=== PATIENT | female | born 1945 | race Caucasian/White ===

== ENCOUNTER 2020-08-09 10:10 | Emergency (ER) | payer MEDICARE, OTHER, SELFPAY ==
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
[2020-08-09 10:12] VITALS: BP 157/72; PULSE 57; RESP 16; O2SAT 100
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
[2020-08-09] MEDS: TETANUS,DIPHTHERIA,AC PERTUSSIS ADULT (0.5 ML) BOOSTRIX IM (12:26)
[2020-08-09 13:27] VITALS: BP 117/80; PULSE 57; RESP 16
== END 2020-08-09 13:27 | disposition home or self-care (01) ==
PROVIDERS: Emergency Provider General Practice; PCP Family Medicine
DX: S40.011A Contusion of right shoulder, initial encounter (principal); S61.303A Unspecified open wound of left middle finger with damage to nail, initial encounter; S00.83XA Contusion of other part of head, initial encounter; Z23 Encounter for immunization; I10 Essential (primary) hypertension; M18.9 Osteoarthritis of first carpometacarpal joint, unspecified; W20.8XXA Other cause of strike by thrown, projected or falling object, initial encounter
CPT/HCPCS: 70450; 70486; 72125; 73030; 73130; 90471; 90715; 99284

== ENCOUNTER 2022-04-02 17:56 | Emergency (ER) | payer OTHER, MEDICARE, SELFPAY ==
[2022-04-02] VITALS (7 sets, daily range): BP systolic 118–151; BP diastolic 79–97; PULSE 71; RESP 18–20; TEMP 37.1; O2SAT 97–98
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
[2022-04-02] MEDS: ACETAMINOPHEN 500 MG TABLET 1000 MG PO (19:25)
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
[2022-04-02] MEDS: CYCLOBENZAPRINE HCL 5 MG TABLET PO (20:25)
== END 2022-04-02 20:40 | disposition home or self-care (01) ==
PROVIDERS: Emergency Provider General Practice; PCP Family Medicine
DX: S43.402A Unspecified sprain of left shoulder joint, initial encounter (principal); S16.1XXA Strain of muscle, fascia and tendon at neck level, initial encounter; S70.02XA Contusion of left hip, initial encounter; M19.012 Primary osteoarthritis, left shoulder; M16.0 Bilateral primary osteoarthritis of hip; M47.816 Spondylosis without myelopathy or radiculopathy, lumbar region; M47.812 Spondylosis without myelopathy or radiculopathy, cervical region; V43.52XA Car driver injured in collision with other type car in traffic accident, initial encounter
CPT/HCPCS: 72100; 72125; 73030; 73502; 99284; A9270

== ENCOUNTER 2022-07-14 16:25 | Emergency (ER) | payer MEDICARE, OTHER, SELFPAY ==
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
--- NOTE | 2022-07-14 16:45 | PC.NURSE ---
Patient off unit to radiology.
--- NOTE | 2022-07-14 17:24 | ED.LOWEXIN ---
HPI - Extremity Injury (Lower) General Chief Complaint: Extremity Injury, Lower Stated Complaint: right foot pain Time Seen by Provider: 07/14/22 16:54 History of Present Illness HPI Narrative: 77-year-old female presents to the emergency room for evaluation of pain to her right foot. Patient states 1 week ago she stubbed her toe on a concrete block. Reports was experiencing pain for 2 days and then the pain improved, however over the weekend the pain returned and was worse. Patient has been taking Tylenol and ibuprofen sporadically for the discomfort. No other injuries. Related Data Allergies Allergy/AdvReac Type Severity Reaction Status Date / Time iodine Allergy Unknown Unknown Verified 08/09/20 10:17 Review of Systems Review of Systems: CONSTITUTIONAL: Denies fever, chills, or sweats. EYES: Denies visual changes, redness, or discharge. ENT: Denies rhinorrhea, congestion, sore throat, or otalgia. CARDIOVASCULAR: Denies chest pain, palpitations, or edema. RESPIRATORY: Denies cough or dyspnea. GASTROINTESTINAL: Denies abdominal pain, nausea, vomiting, or diarrhea. GENITOURINARY: Denies dysuria or hematuria. SKIN: Denies rash or itching. MUSCULOSKELETAL: Reports right second toe pain NEUROLOGIC: Denies headache, numbness, dizziness, or weakness. PSYCHIATRIC: Denies anxiety or depression. PMFSH Past Medical History Medical History History of hypertension Surgical History Surgical History Hx of cholecystectomy Family History Family History Mother Hypertension Family history of osteoarthritis Family history of elevated blood lipids Father Hypertension Patient's father is Grandparent Hypertension Cerebrovascular accident Social History Social History Smoking status: Never smoker Alcohol intake: current Exam Narrative: GENERAL: Well-appearing, well-nourished, no physical limitations, and in no acute distress. HEAD: Normocephalic, atraumatic. EYES: Conjunctivae normal, PERRLA and EOMI. CHEST: Clear to auscultation. No respiratory distress. No wheezes rales or rhonchi. HEART: Regular rate and rhythm. No murmur heard. Normal peripheral pulses. EXTREMITIES: Rt. foot, 2nd toe: +TTP to tip, no ecchymosis or swelling. Full range of motion of DIP PIP and MTP joints. No obvious bony abnormality. Neurovascular is intact distally SKIN: Warm, dry, no rash. No noted wounds NEURO: No focal deficits. Alert and oriented x3. MAEW. CN's II-XI intact bilaterally, antalgic gait PSYCH: Cooperative. Normal mood and affect. MDM - Extremity Injury (Lower) Imaging Data Radiologist's impression: Impressions Foot X-Ray 07/14/22 16:55 IMPRESSION: No recent fracture or dislocation is detected. Discharge Plan Discharge Clinical Impression: Contusion of toe of right foot Patient Disposition: Home, Self-Care Condition: Stable Additional Instructions: Wear Ortho shoe for comfort for the next 2 weeks. If you continue to experience pain in 2 weeks, recommend following up with orthopedics. May take Tylenol and ibuprofen as needed for discomfort. Prescriptions: No Action cyclobenzaprine 5 mg tablet 5 mg PO HS PRN (Reason: muscle spasm) Qty: 10 0RF Follow-up/Referrals: Demian,Ivanna Boudreaux MD [Primary Care Provider] - Clarence Ferris MD [Physician] - Time of Disposition: 17:27
== END 2022-07-14 17:55 | disposition home or self-care (01) ==
LOC: ANHED 17:37
PROVIDERS: Emergency Provider Nurse Practitioner Family; PCP Family Medicine
DX: S90.121A Contusion of right lesser toe(s) without damage to nail, initial encounter (principal); W22.8XXA Striking against or struck by other objects, initial encounter; I10 Essential (primary) hypertension
CPT/HCPCS: 73630; 99283

== ENCOUNTER 2022-07-22 07:43 | Outpatient (CLI) | payer MEDICARE, OTHER, SELFPAY | END 2022-07-22 07:44 | disposition home or self-care (01) | LOC: ANHAUDIO 07:45 | PROVIDERS: PCP Family Medicine; Visit Provider Family Medicine | DX: H91.93 Unspecified hearing loss, bilateral (principal) | CPT/HCPCS: 92557; 92567 ==

== ENCOUNTER 2024-07-17 08:46 | Emergency (ER) | payer MEDICARE, SELFPAY ==
--- NOTE | ~2024-07-17 | XR_ITS ---
EXAMINATION: XR shoulder LT min 2V DATE: 07/17/2024 09:27 INDICATION: Left shoulder pain. TECHNIQUE: 5 views of left shoulder were obtained. COMPARISON: Left shoulder radiograph 04/02/2022 FINDINGS: Alignment is normal. No fracture. There is mild osteoarthritis of glenohumeral joint and mo derate osteoarthritis of acromioclavicular joint. IMPRESSION: 1. Polyarticular osteoarthritis. Reviewed, dictated and finalized at location A. PROFESSIONAL
[2024-07-17 09:30] VITALS: BP 170/74; PULSE 68; RESP 20; TEMP 36.6; O2SAT 99
--- NOTE | 2024-07-17 10:21 | ED_ITS ---
HPI - Extremity Problem General Chief complaint: Extremity Problem,Nontraumatic Stated complaint: shoulder injury Time Seen by Provider: 07/17/24 10:00 Source: patient Mode of arrival: ambulatory Limitations: no limitations History of Present Illness HPI Narrative: Mjqkx-gytd-uvgzzrys female presents with left shoulder pain. She was using a long handled paint roller to pain a ceiling yesterday. Approximately min she started developing pain that seems to worsened since she has decreased range of motion secondary to pain. Pains throughout her left shoulder and to her left elbow. She had some some neck stiffness but this got better with the use of a heating pad. She believes she might have had shoulder surgery or procedure shoulder for a possible bone spur but she is unsure which side or what the issue was. This was 18 years ago and she does not continue follow with her orthopedic surgeon she believes they moved to [place]. She has been taking ibuprofen at home, four 200mg tablets (i.e. 800mg) a few times. Her previous PCP was Dr Camacho who is . She subsequently established with an [facility] CON[facility] in Dr Marty Morales's practice who she sees for her arthritis and chronic numbness in her feet. She states she has a history left-sided weakness as well problems being worse when they occur on that side. She denies any diagnosis a TIA or CVA but notes that she did previously sever a tendon in left foot. Related Data Allergies Allergy/AdvReac Type Severity Reaction Status Date / Time shrimp Allergy Hives Verified 07/19/24 11:22 [facility] Past Medical History Medical History (Updated 07/19/24 @ 11:24 by Roxane Peña MD) Arthritis History of hypertension Injury of tendon of foot Left Numbness in feet Right hand dominant Surgical History Surgical History Hx of cholecystectomy Hx of shoulder surgery bone spur Family History Family History Mother Hypertension Family history of osteoarthritis Family history of elevated blood lipids Father Hypertension Patient's father is Grandparent Hypertension Cerebrovascular accident Social History Social History Smoking status: Never smoker Alcohol intake: current Exam Narrative: GENERAL: Well-appearing, well-nourished, and in no acute distress. HEAD: Normocephalic, atraumatic. EYES: Non injected, non icteric ENT: Nares clear, no rhinorrhea or epistaxis. NECK: Supple. CHEST: Speaking in full sentences. No respiratory distress. HEART: Regular rate and rhythm. . ABDOMEN: Soft, nondistended. EXTREMITIES: Normal range of motion. No upper extremity edema. Patient experiences some pain on the left with Neer's assessment. she is able to demonstrate Hinckley lift-off test bilaterally. SKIN: Warm, dry, no rash. NEURO: No focal deficits. Alert and oriented x3. Sensation intact throughout arm. No overlying erythema, ecchymosis, abrasion, laceration PSYCH: Normal mood and affect. Course Vital Signs Vital signs: Vital Signs Temperature 97.9 F 07/17/24 09:30 Pulse Rate 68 07/17/24 09:30 Respiratory Rate 20 07/17/24 09:30 Blood Pressure 170/74 H 07/17/24 09:30 Pulse Oximetry 99 07/17/24 09:30 Temperature 97.9 F 07/17/24 09:30 Pulse Rate 58 L 07/17/24 11:41 Respiratory Rate 16 07/17/24 11:41 Blood Pressure 233/71 H 07/17/24 11:41 Pulse Oximetry 97 07/17/24 11:41 MDM - Extremity (Nontraumatic) MDM Narrative Medical decision making narrative: [id number] female presents with left shoulder pain bloated last night after painting her ceiling earlier in the day. in the emergency department she is afebrile with vital signs notable for hypertension. Patient given analgesic medication. She has a reassuring physical exam and is otherwise neurovascularly intact. She is provided prescriptions for analgesic medication combination as well as instructions on shoulder exercises she can perform at home. Advised follow-up with her primary care provider if pain persists that she might require further investigation/intervention. Stable for discharge. Patient remained hypertensive at the time of discharge. She did tell the nurse that she came to the emergency department this morning before being able to take her medications but she otherwise has them at home and does not need of any refills. She is otherwise asymptomatic and denies any chest pain or shortness of breath. Differential Diagnosis Differential diagnosis: Likely other (Overuse injury, tendinopathy fracture, dislocation, rotator pathology) Imaging Data Radiologist's impression: IMPRESSION: 1. Polyarticular osteoarthritis. Discharge Plan Discharge Clinical Impression: Polyarticular osteoarthritis, Acute pain of left shoulder Patient Disposition: Home, Self-Care Condition: Stable Instructions: Antibiotic Form, Osteoarthritis (ED), Shoulder Pain (ED) Additional Instructions: It is safe to take acetaminophen/Tylenol with NSAIDs such as ibuprofen as prescribed. When taken together they can sometimes have an even greater affect than when taken independently/alone. Attempt the following Shoulder Exercises +Pendulum swings Patient bends slightly at waist with arm hanging freely in front of body Arms should be swung in gentle arcs of motion both clockwise and counter- clockwise Swing to level of pain tolerance x 5-10min 3-4 times per day +Walk fingers up wall Stand sideways an arm's length from wall and walk fingers up wall to level of pain tolerance three to four times per day Follow-up with your primary care provider, the ADMISSIONS CONSULTANT at Dr Morales's office as, if pain is not improving may require alternative pain medication, physical therapy, additional imaging, etc. return to the emergency department with any new or worsening symptoms. Prescriptions: New ibuprofen 600 mg tablet 600 mg PO TID PRN (Reason: pain) Qty: 30 0RF acetaminophen 500 mg capsule 1,000 mg PO Q6H PRN (Reason: pain) Qty: 20 0RF diclofenac sodium [Aleve (diclofenac)] 1 % gel 2 g topical QID Qty: 100 0RF Rx Instructions: apply to affected area No Action cyclobenzaprine 5 mg tablet 5 mg PO HS PRN (Reason: muscle spasm) Qty: 10 0RF Follow-up/Referrals: Carmen,Marty Gonzalez MD [Primary Care Provider] - Time of Disposition: 11:09
[2024-07-17] MEDS: HYDROcodone/acetaminophen (*CRX) 5-325 MG TABLET 1 TAB PO (10:42)
[2024-07-17] MEDS: ACETAMINOPHEN 325 MG TABLET 650 MG PO (10:42)
--- NOTE | 2024-07-17 11:38 | PC.NURSE ---
BP at time of d/c 233/71. Pt. denies SOB or chest pain. Pt. states I just forget to take my BP medication this morning. Pt. does not need a refill and has her medications at home. Md Peña notified. Per , pt. ok to d/c home. Pt also ok with plan and she will take her medication immediately when she gets home.
[2024-07-17 11:41] VITALS: BP 233/71; PULSE 58; RESP 16; O2SAT 97
== END 2024-07-17 11:43 | disposition home or self-care (01) ==
PROVIDERS: Emergency Provider Student in an Organized Health Care Education/Training Program; PCP Family Medicine
DX: M19.012 Primary osteoarthritis, left shoulder (principal); I10 Essential (primary) hypertension; Z90.49 Acquired absence of other specified parts of digestive tract
CPT/HCPCS: 73030; 99283; A9270

== ENCOUNTER 2024-11-07 09:12 | Outpatient (CLI) | payer MEDICARE, SELFPAY ==
--- NOTE | 2024-11-07 09:53 | ECG_ITS ---
Test Date: 2024-11-07 10:08:17 Measurements Intervals [place] Rate: 52 P: 5 VA: 163 QRS: 1 QRSD: 79 T: 30 QT: 427 QTc: 399 Interpretive Statements SINUS BRADYCARDIA No previous ECG available for comparison Electronically Signed On 11-08-2024 15:29:48 CDT by Matty Hernandez M.D.
--- OUTSIDE RECORDS SUMMARY | 2024-11-07 10:07 | XMS_ITS | Data Portability ---
Author Organization [facility] [employer], Main Office Address [address] [place] [address] Assessment No assessment recorded. Plan of Treatment Reminders Order Date Submit Date Provider Last Modified By Organization Details Last Modified Time Details Appointments None recorded. Lab noninvasive colorectal cancer DNA + occult blood screening, QL, stool 2023 024 [email or web address] [facility] (Cologuard Orders Only), [address] [facility], [address], [place], [address], 4 08:25:28 TSH + free T4, serum 2023 024 [facility], [address] [facility] [address], [place], [address], 4 13:22:03 Referral cardiologis t referral - Please continue to eval and treat prn . Grace call patient to schedule an appointment with Dr. Noé Thomas. Thank you 2023 024 [facility], [address] [facility], [address], [place], [address], 4 08:23:04 physical therapist referral - pain left hip laterally down to knee *Please call pt to schedule* 2023 024 [facility], [address], [place], [address], 4 09:50:19 Procedures None recorded. Surgeries None recorded. Imaging MAMMO, screening, digital, bilateral 2023 024 [facility], [address] , [place], [address], 4 11:12:54 US, duplex, venous, lower extremity, complete - *Please call pt to schedule* 2023 024 [facility], [address] , [place], [address], 4 10:55:15 Medication Orders Paxlovid 300 mg (150 mg x 2)-100 mg tablets in a dose pack 2023 024 [facility]/Pharmacy #[id number], [address], [place], [address], 4 11:25:52 dexamethaso ne 6 mg tablet 2023 024 [email or web address] [address] [facility]/Pharmacy #[id number], [address], [place], [address], 4 11:33:51 amoxicillin 875 mg-potassiu m clavulanate 125 mg tablet 2023 024 [email or web address] [facility]/Pharmacy #[id number], [address], [place], [address], 4 12:25:39 Patient TargetsNo targets recorded. Patient Instructions Encounter Date Encounter Id Patient Instructions Last Modified By Organization Details Last Modified Time 03/31/2024 [id number] advance directiv es: care instructions [email or web address] Not available 03/31/2024 11:25:49 advance care planning: care instructions [email or web address] Not available 03/31/2024 11:25:49 [place] Advance Directives [email or web address] Not available 03/31/2024 11:25:49 Personalized a lt Plan and Screening Recommendations Advance Directives - Do you have one? Advance Directives - Do we have your advance directive on file in your health record? Primary Prevention/Interven tion (prevents or decreases the chance of common diseases from occurring) Smoking Risk: Alcohol Misuse Screening: Weight: Physical activity: Nutrition: Fall Risk (screened today): Vaccines Pneumococcal: Influenza: Chronic Disease Risks Stroke: I have no recommendations Active diagnosis, Continue current treatment plan Heart Attack: I have no recommendations Act beto diagnosis, Continue current treatment plan Clogging of the Arteries: I have no recommendations Act beto diagnosis, Continue current treatment plan Diabetes: Active diagnosis, Continue current treatment plan Secondary Prevention/Interven tion (detects treatable diseases before they may cause symptoms, disability, or ) Breast Cancer Screening with mammogram: Cervical/Uterine/Ov marlin Cancer Screening: Osteoporosis Screening: Date Screening Last Performed: Colon Cancer Screening: Date Screening Last Performed: Eye Disease Screening: Dementia Risk: Depression Screening: Active diagnosis, Continue current treatment plan [email or web address] Not available 03/31/2024 11:21:00 reschedule kell ess visit for vida [email or web address] Not available 03/31/2024 11:26:47 Reason for Referral Physical Therapist Referral for Pain of left knee region pain left hip laterally down to knee *Please call pt to schedule* Referring Physician: Gabo Morel [facility] Medicine, Encounter Date: 11/27/2023 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 Grace call patient to schedule an appointment with Dr. Noé Thomas. Thank you Referring Physician: Gabo Morel [facility] Medicine, Encounter Date: 01/14/2024 Results Created Date Observation Date Name Description Value Unit Range Abnormal Flag Note LastModifiedBy Organization Detail LastModifiedTime 11/10/19 24 11/09/2023 US, danicale x, lauraou s, [facility] mity, compl ete No observ ation record ed. [email or web address] [facility] [address] [place] [address] , [place], [address], 11/10/2023 16:44:57 01/22/20 24 01/22/2024 MAMMO , scree chau, digit al, bilat eral No observ ation record ed. [email or web address] [address], [address], 04/28/2024 09:56:33 07/17/20 24 07/17/2024 imagi ng/di agnos tic resul t No observ ation record ed. [facility] [address], [place], [address], 07/17/2024 10:53:19 09/21/19 25 09/21/2024 MRI, cervi giles spine , w/o contr ast No observ ation record ed. [email or web address] [place] [address], [place], [address], 09/22/2024 08:41:57 Result Notes None recorded. Problems Name Problem SNOMED Code Status Onset Date Resolution Date Notes Provider Name and Address Organization Details Recorded Time Generalize d headache 382347010 Active Not Available [facility] 3 09:35:56 Disorder of nail 20239481 Active Not Available [facility] 3 09:35:57 Feeling stressed 343657274 Active Not Available [facility] 3 09:35:57 Hand wart 356228921 Active Not Available [facility] 3 09:35:57 Fibromyosi tis 88015226 Active Not Available [facility] 3 09:35:57 Ankle pain 267269721 Active Not Available [facility] 3 09:35:57 Headache 10124030 Active Not Available [facility] 3 09:35:57 Varicose vein finding 849353883 Active Not Available [facility] 3 09:35:57 Pain in left lower limb 244930766 Active Not Available [facility] 3 09:35:57 Enthesopat hy of hip region 49673572 Active Not Available [facility] 3 09:35:57 Knee pain Active Not Available [facility] 3 09:35:57 Depressive disorder 20987372 Active Not Available [facility] 3 09:35:57 Hypertensi ve disorder 80773378 Active Not Available [facility] 3 09:35:57 Neuropathy 317571363 Active Not Available [facility] 3 09:35:57 Memory impairment 173291355 Active Not Available [facility] 3 09:35:57 Osteoarthr itis 787741553 Active Not Available [facility] 3 09:35:57 Tension-ty pe headache 408139232 Active Not Available [facility] 3 09:35:57 Viral wart on finger 733198289 Active Not Available [facility] 3 09:35:57 Hypothyroi dism 94288773 Active Not Available [facility] 3 09:35:57 Easy bruising 885543111 Active Not Available [facility] 3 09:35:57 Near syncope 990935976 Active Not Available [facility] 3 09:35:57 Strain of hamstring muscle 144077873742 Active Not Available [facility] 3 09:35:57 Anxiety 29299950 Active Not Available [facility] 3 09:35:57 Sinus bradycardi a 22131029 Active Not Available [facility] 3 09:35:57 Onychogryp hosis 09124416 Active Not Available [facility] 3 09:35:57 Nerve injury 78998544 Active Not Available [facility] 3 09:35:57 Essential hypertensi on 94358616 Active Not Available [facility] 3 09:35:57 Diarrhea 49144059 Active Not Available [facility] 3 09:35:57 Muscle pain 43996369 Active Not Available [facility] 3 09:35:57 Edema of eyelid 37678762 Active Not Available [facility] 3 09:35:57 Deltoid tendinitis 855020149 Active 2022 Not Available [facility] 3 09:35:57 Allergic rhinitis 15168045 Active 2022 Not Available [facility] 3 09:35:57 Hyperlipid emia 91585896 Active 2022 Not Available [facility] 3 09:35:57 Right side sciatica 2567288438973 01 Active 06/20/ 2023 Not Available [facility] 3 09:35:57 Pain of right knee joint 0730366618617 00 Active 2022 Not Available [facility] 3 09:35:57 Degenerati ve joint disease involving multiple joints 408275331 Active 2022 Not Available [facility] 3 09:35:57 Pain radiating to right flank 858551467 Active 2022 Ivanna Arciniega MD [address], [address], [place], [address] , [place] [facility] 3 15:01:49 Acute otitis media 7874559 Active 2023 ALLIE Alvarado [address], [address], [place], [address] , [place] [facility] 4 12:48:02 Bilateral calf pain 1299905525234 9104 Active 2023 ALLIE Alvarado [address], [address], [place], [address] , [place] [facility] 4 11:43:40 Pain of left knee region 5338278149078 09 Active 2023 ALLIE Alvarado [address], [address], [place], [address] , [place] [facility] 4 12:57:27 Osteoarthr itis of right knee joint 2468917913897 00 Active 2023 ALLIE Alvarado [address], [address], [place], [address] , [place] [facility] 4 21:37:25 Screening for malignant neoplasm of colon Active 2023 ALLIE Alvarado [address], [address], [place], [address] , [place] [facility] 4 09:46:28 Screening for malignant neoplasm of breast Active 2023 ALLIE Alvarado [address], [address], [place], [address] , [facility] 09:46:52 COVID-19 807843769 Active 2023 ALLIE Alvarado [address], [address] , [facility] [employer] [facility] 11:25:17 Problem Notes None recorded. Procedures Surgical History Date Name Laterality Status Provider Name and Address Organization Details Recorded Time 03/31/20 24 Medicare Wellness CPT Code, subsequent completed Juju Campos RN [facility] 03/31/2024 11:21:03 02/04/20 23 Medicare Wellness CPT Code, subsequent completed Janelle Lowry RN [facility] 01/30/2023 14:31:47 Knee Replacement completed Margo Chavez MA [facility] 01/16/2023 09:50:58 Shoulder completed Margo Chavez MA [facility] 01/16/2023 09:51:15 Sinus Surgery completed Margo Chavez MA [facility] 01/16/2023 09:51:24 Imaging Results Imaging Date Name Status LastModified by Organiz ation Details LastModified Time 11/09/2023 US, duplex, venous, lower extremity, complete completed [email or web address] [place] [address] [address] [place] [address], [place], [address], 11/10/2023 16:44:57 01/22/2024 MAMMO, screening, digital, bilateral completed [facility] [address] [place], [address], 04/28/2024 09:56:33 07/17/2024 imaging/diagno stic result active [address], [place], [address], 07/17/2024 10:53:19 09/21/2024 MRI, cervical spine, w/o contrast completed [email or web address] [place] [address] [address] [place], [address], 09/22/2024 08:41:57 Procedure Notes None recorded. Medical Equipment None Reported. Allergies No known drug allergies Medications Name Sig Start Date Stop Date Status Note LastModified by Organization Details LastModified Time celecoxib 200 mg capsule 1 po daily active Not Available Not Available No t Available glycopyrr olate 1 mg tablet Take 1 tablet twice a day by oral route as needed. active Not Available Not Available No t Available cyclobenz aprine 10 mg tablet TAKE 1 TABLET BY MOUTH THREE TIMES A DAY 11/02 completed Not Available Not Available Not Available amoxicill in 500 mg capsule Take 1 capsule twice a day by oral route for 7 days. active Not Available Not Available No t Available methocarb frieda 500 mg tablet TAKE 1 TABLET BY MOUTH FOUR TIMES A DAY NEEDED active Not Available Not Available No t Available silver sulfadiaz ine 1 % topical cream APPLY A 1/16 INCH THICK LAYER TO ENTIRE BURN AREA ON THE SKIN TWICE A DAY 07/22 completed Not Available Not Available Not Available prednison e 10 mg tablet Take by oral route 4pills daily x 3 days, 3 pills daily x 3 days , 2 pills daily x 3 days and 1 pill daily x 3 days then stop active Not Available Not Available No t Available doxycycli ne hyclate 100 mg capsule Take 1 capsule twice a day by oral route for 10 days. active Not Available Not Available No t Available carvedilo l 12.5 mg tablet TAKE 1 TABLET BY MOUTH TWICE A DAY active Not Available Not Available No t Available cetirizin e 10 mg tablet Take 1 tablet every day by oral route. 2022 active Not Available Not Available Not Avai lable atorvasta tin 10 mg tablet 01/16 completed Not Available Not Available Not Available azithromy warner 250 mg tablet TAKE 2 TABLETS BY MOUTH TODAY, THEN TAKE 1 TABLET DAILY FOR 4 DAYS 04/11 completed Not Available Not Available Not Available tizanidin e 4 mg tablet Take 1 tablet every 6 hours by oral route as needed. active Not Available Not Available No t Available hydrocodo ne 5 mg-acetam inophen 325 mg tablet Take 1-2 TABLET EVERY4- 6 HOURS by oral route. active Not Available Not Available No t Available meloxicam 15 mg tablet TAKE 1 TABLET BY MOUTH EVERY DAY WITH FOOD 11/15 completed Not Available Not Available Not Available ondansetr on HCl 4 mg tablet active Not Available Not Available No t Available clonazepa m 0.5 mg tablet one po tid active Not Available Not Available No t Available dexametha sone 6 mg tablet TAKE 1 TABLET BY MOUTH EVERY DAY IN THE MORNING FOR 7 DAYS active Not Available Not Available No t Available prednison e 5 mg tablet TAKE 1 TABLET BY MOUTH EVERY DAY 05/09 completed Not Available Not Available Not Available clonazepa m 1 mg tablet one po tid prn active Not Available Not Available No t Available midodrine 5 mg tablet Take 1 tablet twice a day by oral route. 07/22 completed Not Available Not Available Not Available topiramat e 25 mg tablet TAKE 1 TABLET BY MOUTH EVERY DAY active Not Available Not Available No t Available hydralazi ne 25 mg tablet active Not Available Not Available Not Available ciproflox acin 500 mg tablet TAKE 1 TABLET BY MOUTH EVERY 12 HOURS FOR 5 DAYS 04/28 completed Not Available Not Available Not Available sulfameth oxazole 800 mg-trimet hoprim 160 mg tablet active Not Available Not Available Not Available tramadol 50 mg tablet TAKE 1 TABLET BY MOUTH EVERY 6 HOURS NEEDED FOR PAIN active Not Available Not Available No t Available levothyro xine 25 mcg tablet TAKE 1 TABLET BY MOUTH EVERY DAY 02/04 completed Not Available Not Available Not Available meloxicam 7.5 mg tablet TAKE 2 TABLETS BY MOUTH EVERY DAY active Not Available Not Available No t Available alprazola m 0.5 mg tablet one po tid prn active Not Available Not Available No t Available prednisol one acetate 1 % eye drops,renetta pension INSTILL 1 DROP IN BOTH EYES 4 TIMES A DAY FOR 1 WEEK 04/11 completed Not Available Not Available Not Available aspirin 325 mg tablet,de layed release TK 1 T PO 2 TIMES Q DAY FOR 21 DAYS active Not Available Not Available No t Available Kenalog 10 mg/mL suspensio n for injection In office injectio n administ ered by the provider 08/21 completed [facility]: 0003-049 12-04 Not Available Not Available Not Available amlodipin e 10 mg tablet TAKE 1 TABLET BY MOUTH AT BEDTIME 01/16 completed Not Available Not Available Not Available levothyro xine 50 mcg tablet TAKE 1 TABLET BY MOUTH EVERY DAY 2023 active Not Available Not Available Not Avai lable cephalexi n 500 mg capsule one po q 12 hours active Not Available Not Available No t Available ferrous sulfate 325 mg (65 mg iron) tablet TK 1 T PO QD active Not Available Not Available No t Available hydrochlo rothiazid e 12.5 mg capsule TAKE 1 CAPSULE BY MOUTH EVERY DAY active Not Available Not Available No t Available gabapenti n 300 mg capsule TAKE 1 CAPSULE BY MOUTH THREE TIMES A DAY active Not Available Not Available No t Available verapamil ER (SR) 240 mg tablet,ex tended release TK 2 TS PO QD active Not Available Not Available No t Available hydralazi ne 50 mg tablet TK 1 T PO BID 07/22 completed Not Available Not Available Not Available hydrochlo rothiazid e 25 mg tablet TK 1 T PO DAILY active Not Available Not Available No t Available diclofena c sodium 50 mg tablet,de layed release TAKE 1 TABLET BY MOUTH TWICE A DAY active Not Available Not Available No t Available ibuprofen 600 mg tablet TK 1 T PO Q 8 H WITH FOOD PRN P active Not Available Not Available No t Available methylpre dnisolone 4 mg tablets in a dose pack TAKE 6 TABLETS ON DAY 1 DIRECTED ON PACKAGE AND DECREASE BY 1 TAB EACH DAY FOR A TOTAL OF 6 DAYS 06/02 completed Not Available Not Available Not Available lisinopri l 40 mg tablet TAKE 1 TABLET BY MOUTH EVERY DAY 2023 active Not Available Not Available Not Avai lable metformin ER 500 mg tablet,ex tended release 24 hr TAKE 1 TABLET BY MOUTH EVERY DAY 01/16 completed stopped talking when A1C was 5 Not Available Not Available Not Available atenolol 50 mg tablet 07/22 completed Not Available Not Available Not Available amoxicill in 875 mg-potass ium clavulana te 125 mg tablet TAKE 1 TABLET BY MOUTH EVERY 12 HOURS FOR 10 DAYS 11/26 completed Not Available Not Available Not Available neomycin 3.5 mg/g-poly myxin B 10,000 unit/g-de xameth 0.1 % eye oint active Not Available Not Available Not Available cyclobenz aprine 5 mg tablet TAKE 1 TABLET BY MOUTH AT BEDTIME NEEDED FOR MUSCLE SPASM active Not Available Not Available No t Available Restasis 0.05 % eye drops in a dropperet te 05/15 completed Not Available Not Available Not Available Vigamox 0.5 % eye drops active Not Available Not Available Not Available duloxetin e 30 mg capsule,d elayed release 1 po daily 10/14 completed Not Available Not Available Not Available duloxetin e 60 mg capsule,d elayed release 1 po daily 10/14 completed Not Available Not Available Not Available Lyrica 200 mg capsule Take 1 capsule twice a day by oral route. 07/22 completed Not Available Not Available Not Available multivita min 2013 active Not Available Not Available Not Avai lable lidocaine (PF) 10 mg/mL (1 %) injection solution In office injectio n administ ered by the provider 08/21 completed [facility]: 0409-427 6-17 Not Available Not Available Not Available ProAir HFA 90 mcg/actua tion aerosol inhaler active Not Available Not Available Not Available hydrochlo rothiazid e 12.5 mg tablet Take 1 tablet every day by oral route. 2013 active Not Available Not Available Not Avai lable Calcium 500 With D 2013 active Not Available Not Available Not Avai lable Durezol 0.05 % eye drops active Not Available Not Available No t Available Vascepa 1 gram capsule active Not Available Not Available Not Available Ilevro 0.3 % eye drops,renetta pension active Not Available Not Available Not Available Jardiance 10 mg tablet 01/16 completed Not Available Not Available Not Available Fluzone High-Dose 2018- (PF) 180 mcg/0.5 mL intramusc ular syringe ADM 0.5ML IM UTD 09/29 completed Not Available Not Available Not Available Fluzone High-Dose Quad 2019- (PF) 240 mcg/0.7 mL IM syringe TO BE ADMINIST ERED BY PHARMACI ST FOR IMMUNIZA TION 08/21 completed Not Available Not Available Not Available Paxlovid 300 mg (150 mg x 2)-100 mg tablets in a dose pack TAKE 3 TABLETS BY MOUTH TWICE A DAY FOR 5 DAYS active Not Available Not Available No t Available Vitals Date Recorded Body height Body mass index (BMI) Body weight Body temperature Heart rate Respiratory rate Oxygen saturation Oxygen saturation in Arterial blood by Pulse oximetry Systolic blood pressure Diastolic blood pressure Provider Name and Address Organization Details Last Updated DateTime 4 160.02 cm 39.1 kg/m2 420459. 91 g 97.6 [degF] 62 /min 16 /min 97 % 97 % 134 mm[Hg] 76 mm[Hg] Pili Mckeon RN [facility] [employer] [facility] 4 12:13:42 Date Recorded Body height Body mass index (BMI) Body weight Heart rate Oxygen saturation Oxygen saturation in Arterial blood by Pulse oximetry Body temperature Systolic blood pressure Diastolic blood pressure Provider Name and Address Organization Details Last Updated DateTime 4 160.02 cm 39.1 kg/m2 101196. 91 g 78 /min 98 % 98 % 98.2 [degF] 136 mm[Hg] 78 mm[Hg] Pili Mckeon RN [facility] [employer] [facility] 4 11:18:25 Date Recorded Body height Body mass index (BMI) Body weight Pain severity - 0-10 verbal numeric rating [Score] - Reported Body temperature Heart rate Oxygen saturation Oxygen saturation in Arterial blood by Pulse oximetry Respiratory rate Systolic blood pressure Diastolic blood pressure Provider Name and Address Organization Details Last Updated DateTime 4 160.02 cm 38.4 kg/m2 36138.5 4 g 8 97.8 [degF] 49 /min 98 % 98 % 16 /min 120 mm[Hg] 86 mm[Hg] Juju Campos RN [facility] [employer] [facility] 4 12:28:58 Date Recorded Body height Body mass index (BMI) Body weight Body temperature Heart rate Oxygen saturation Oxygen saturation in Arterial blood by Pulse oximetry Respiratory rate Systolic blood pressure Diastolic blood pressure Provider Name and Address Organization Details Last Updated DateTime 4 160.02 cm 38.6 kg/m2 32117.1 4 g 97.6 [degF] 56 /min 98 % 98 % 16 /min 148 mm[Hg] 86 mm[Hg] Juju Campos RN [facility] [employer] [facility] 4 09:34:45 Date Recorded Body height Body mass index (BMI) Body weight Provider Name and Address Organization Details Last Updated DateTime 03/31/2024 160.02 cm 38.3 kg/m2 60425.95 g Juju Campos RN [facility] [employer] [facility] 03/31/2024 11:22:41 Social History Question Answer Notes LastModified by Organizat ion Details LastModified Time Tobacco Smoking Status Never Smoker Not Available [facility] 10/15/2022 09:12:57 What Is Your Level Of Alcohol Consumption? Occasional [id number] Information not available 10/15/2022 In The 14 Days Before Symptom Onset, Have You Had Close Contact With A Laboratory-confirm ed COVID-19 While That Case Was Ill? No [id number] Information not available 10/15/2022 In The 14 Days Before Symptom Onset, Have You Had Close Contact With A Person Who Is Under Investigation For COVID-19 While That Person Was Ill? No [id number] Information not available 10/15/2022 What Was The Date Of Your Most Recent Tobacco Screening? 04/29/2023 [email or web address] Information not available 04/29/2023 Do You Use Your Seat Belt Or Car Seat Routinely? Yes [email or web address] Information not available 01/16/2023 Do You Participate In Social Media? Yes [email or web address] Information not available 01/16/2023 Do You Feel Stressed (tense, Restless, Nervous, Or Anxious, Or Unable To Sleep At Night)? [id number] [email or web address] Information not available 01/16/2023 Sex: Unknown Functional Status None recorded. Mental Status None recorded. Family History Relationship Description Onset Age of this Age Resolved Age Notes LastModified by Organization Details LastModified Time Father Hypertensive disorder [id number] Not available 10/15/2022 09:13:00 Father Aneurysm [id number] Not available 10/15/2022 09:13:00 Mother Myocardial infarction [id number] Not available 10/15/2022 09:13:00 Maternal Grandfather Myocardial infarction [id number] Not available 10/15/2022 09:13:00 Maternal Grandmother Myocardial infarction [id number] Not available 10/15/2022 09:13:00 Paternal Grandmother Myocardial infarction [id number] Not available 10/15/2022 09:13:00 Paternal Grandfather Myocardial infarction [id number] Not available 10/15/2022 09:13:00 Medical History Condition Response ANXIETY DISORDER Y Gynecological HistoryNo gynecological history recorded. Obstetrics History GPAL:G 0 P 0 0 0 0 Immunizations Vaccine Type Date Status Note Provider Nam e and Address Organization Details Recorded Time Influenza, high-dose, quadrivalent, PF 06/02/2023 completed Ivanna Arciniega MD [facility] [address]ada [facility] [place], [place], [address], [facility] [employer] 06/02/2023 21:48:57 Hep B, adult 06/06/2019 completed Jina Nguyen CMA null, [employer] 06/02/2023 14:53:06 Influenza, high-dose, trivalent, PF 06/27/2015 completed Not [facility] 09:35:57 Past Encounters Encounter ID Performer Location Encounter Start Date Encounter Closed Date Diagnosis/Indication Diagnosis SNOMED-CT Code Diagnosis ICD10 Code Diagnosis Note [id number] [facility] [place] [place] [address] [place] [address] 12/06/2020 00:00:00 12/07/2020 05:52:47 [id number] [facility] [place] [address] [place] [address] 05/09/2021 00:00:00 05/09/2021 20:45:25 [id number] [facility] [place] [address] [address] [place] [address] 12/03/2021 00:00:00 12/03/2021 21:50:03 [id number] [facility] [place] [address] 04/11/2022 00:00:00 04/11/2022 18:39:47 [id number] [facility] [place] [address] 05/12/2022 00:00:00 05/12/2022 20:52:30 [id number] [facility] [address] [place] [address] 07/16/2022 00:00:00 07/16/2022 22:49:15 [id number] [facility] [address] [place] [address] 09/16/2022 00:00:00 09/16/2022 20:05:44 [id number] Ivanna Arciniega MD [facility] [place] [facility] [place] [address] 01/16/2023 09:40:00 01/16/2023 10:08:40 Deltoid tendinitis 419586076 M67.819 Ice and NSAIDs analgesic rub. Allergic rhinitis 263704 04 J30.9 Zyrtec given [id number] Ivanna Arciniega MD [facility] [place] [address]za [facility] [place] [address] 02/03/2023 08:46:14 02/03/2023 09:26:21 Adult health examination 894226767 Z00.00 Screening for disorder 790755349 Z13.9 Hypothyroidism 21293094 E03.9 Hyperlipidemia 22735294 E78.5 Screening for malignant neoplasm of breast 809962231 Z12.39 At [facility] risk of osteoporosis 024258653 Z91.89 Right side sciatica 3202 235673 37231 M54.31 [id number] Ivanna Arciniega MD [facility] [place] [facility] [place] [address] 04/08/2023 10:41:59 04/08/2023 11:11:13 Pain of right knee joint 9544290696 63985 M25.561 Continue RICE and tylenol. May need to see ortho pending xrays. [id number] ALLIE Joshi [facility] Ortho Michelle [place] [address] [place] [address] 04/29/2023 10:51:07 04/29/2023 11:35:51 Pain of right knee joint 4849598392 84297 M25.991 [id number] Ivanna Arciniega MD [facility] [place] [address] [facility] [place] [address] 06/02/2023 14:39:04 06/02/2023 15:08:27 Pain radiating to right flank 461967779 R10.9 Use cyclobenza gabriella as needed. I think this is more musculoske letal. Take ibuprofen but only 4 at one time. Use heat and ice. Will give tramadol for break thru pain. Administra tion of influenza vaccine 69265100 Z23 [id number] ALLIE Alvarado [facility] [place] [address] [facility] [place] [address] 10/01/2023 12:04:29 10/01/2023 12:49:50 Acute otitis media 2212047 H66.92 Allergic rhinitis 188064 04 J30.9 Anxiety 96016989 F41.9 Depressive disorder 3548 9007 F32.A Essential hypertension 35710759 I10 Hyperlipidemia 46633419 E78.5 Neuropathy 381964754 G62 .9 Osteoarthritis 728115293 M19.90 [id number] ALLIE Alvarado [facility] [place] [address] [facility] [place] [address] 10/29/2023 11:11:04 10/29/2023 11:47:50 Acute otitis media 0432852 H66.92 Bilateral calf pain 1563 289459 0354463 M79.661 M79.662 Allergic rhinitis 070346 04 J30.9 Anxiety 03504562 F41.9 Depressive disorder 3548 9007 F32.A Enthesopat hy of hip region 90438849 M76.9 Essential hypertension 08059459 I10 Hyperlipidemia 17503946 E78.5 Hypothyroidism 27034383 E03.9 Neuropathy 832041870 G62 .9 Osteoarthritis 446546360 M19.90 [id number] ALLIE Alvarado [facility] [place] [address] [facility] [place] [address] 11/27/2023 12:10:22 11/27/2023 13:03:28 Pain of left knee region 3356898292 84874 M25.562 Hypothyroidism 37579381 E03.9 Enthesopat hy of hip region 67966695 M76.9 Allergic rhinitis 126730 04 J30.9 Depressive disorder 3548 9007 F32.A Essential hypertension 17224587 I10 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 Hyperlipidemia 55165273 E78.5 Neuropathy 479543523 G62 .9 Osteoarthritis 413112469 M19.90 Osteoarthr itis of right knee joint 1930016120 60095 M17.11 Strain of hamstring muscle 0473118883 04 S76.312D [id number] ALLIE Alvarado [facility] [place] [address] [place] [address] [place] [address] 01/14/2024 09:28:53 01/14/2024 09:50:33 Screening for malignant neoplasm of colon 439031196 Z12.11 Sinus bradycardia 306106 05 R00.1 Easy bruising 141328072 R58 Essential hypertension 30255190 I10 Fibromyositis 28997699 M 79.7 Hyperlipidemia 28650916 E78.5 Hypothyroidism 29615926 E03.9 Memory impairment 788721 006 R41.3 Neuropathy 432259512 G62 .9 Onychogryphosis 81829784 L60.2 Osteoarthritis 902606065 M19.90 Osteoarthr itis of right knee joint 0596608404 10032 M17.11 Screening mammography 24 447718 Z12.31 [id number] ALLIE Alvarado [facility] [place] [facility]za [facility] [place] [address] 03/31/2024 11:10:56 04/09/2024 15:58:32 Adult health examination 407113542 Z00.00 Screening for disorder 235012169 Z13.9 COVID-19 751180014 U07.1 Allergic rhinitis 011953 04 J30.9 Ankle pain 325183778 M25 .579 Anxiety 96503653 F41.9 Depressive disorder 3548 9007 F32.A Essential hypertension 26851494 I10 Hyperlipidemia 49523805 E78.5 Hypothyroidism 43330958 E03.9 Neuropathy 428470618 G62 .9 Osteoarthritis 705871203 M19.90 Health Concerns Section Related Observation LastModified by Organization Detai ls LastModified Time None Recorded Concern Status LastModified by Organization Details LastModified Time None Recorded Advance Directives Directive None Recorded Payers Encounter Date Sequence Insurance Name Policy Number Policy Pride Covered Member ID Pride Member ID Guarantor Name 10/29/2023 1 [employer] (MEDICARE REPLACEMENT PPO) [id number] Lissa F Townzen [id number] Lissa F Townzen 11/27/2023 1 [employer] (MEDICARE REPLACEMENT PPO) [id number] Lissa F Townzen [id number] Lissa F Townzen 01/14/2024 1 [employer] (MEDICARE REPLACEMENT PPO) [id number] Lissa F Townzen [id number] Lissa F Townzen 03/31/2024 1 [employer] (MEDICARE REPLACEMENT PPO) [id number] Lissa F Townzen [id number] Lissa F Townzen Notes Date Note Type Note Provider Name and Address Organization Details Recorded Time 10/01/2023 text/html ear pain bilaterally , some fever , mild ALLIE Alvarado [address], [place], [address], [employer] 10/11/2023 11:51:33 10/29/2023 text/html left ear full , aching .calf pain ALLIE Alvarado [address], [place], [address], [employer] 11/12/2023 13:57:42 11/27/2023 text/html pain left knee , hard to walk for 6 months ALLIE Alvarado [address], [place], [address], [employer] 12/08/2023 21:39:51 01/14/2024 text/html physical therapy helping right knee, refuses colonoscopy , will do a cologuard, refuses ALLIE Alvarado [address], [place], [address], [employer] 01/14/2024 10:09:25 03/31/2024 text/html tested poaitive for covid , mild cough , no fever ALLIE Alvarado [address] [facility] [address], [place], [address], [facility] 04/09/2024 15:58:31 OBGyn Episode No OBEpisode recorded.
--- OUTSIDE RECORDS SUMMARY | 2024-11-07 10:07 | XMS_ITS | Clinical Summary ---
Author Organization [facility] Address [address] [place] [address] Care Team Providers Care Executive Vp Name Role Phone Ivanna Arciniega MD Primary Care Provider [phone] Allergies No known active allergies Medications No known medications Active Problems No known active problems Surgical History Surgery Date Site/Laterality Comments OTHER SURGICAL HISTORY left foot tendon rupture: surgical repair SHOULDER ARTHROSCOPY Arthroscopy shoulder OTHER SURGICAL HISTORY left foot tendon tear KNEE ARTHROPLASTY Knee replacement Medical History Medical History Date Comments Hx Other Medical 2011 left foot tendo n rupture Hx Other Medical right shoulder surgery Hypertension Hypertension Anemia Anemia Hypertension Hypertension Family History Medical History Relation Name Comments Arthritis Other Family history of arthritis; Heart disease Other Family history of heart problems; Hypertension Other Family history of Hypertension; Other Other No family histo ry of Thyroid disease; Relation Name Status Comments Other Social History Tobacco Use Types Packs/Day Years Used Date Smoking Tobacco: Never Alcohol Use Standard Drinks/Week Comments Yes 0 (1 standard drink = 0.6 oz pur e alcohol) Comments Unknown Sex and Gender Information Value Date Recorded Sex Assigned at Not on file 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 Gender Identity Not on file Sexual Orientation Not on file Obstetrics History Last Filed Vital Signs Vital Sign Reading Time Taken Comments Blood Pressure 125/82 05/14/2015 10:07 AM CDT Pulse 95 05/14/2015 10:07 AM CDT Temperature - - Respiratory Rate - - Oxygen Saturation - - Inhaled Oxygen Concentration - - Weight 103 kg (227 lb) 05/14/2015 10:07 AM CDT Height 165.1 cm (5' 5 ) 05/14/2015 10:07 AM CDT Body Mass Index 37.77 05/14/2015 10:07 AM CDT Plan of Treatment Health Maintenance Due Date Last Done Comments Depression Screening 1945 Fall Risk Assessment 1945 Hepatitis C Screening 1945 Osteoporosis Screening-Bone Density Scan 1945 Pneumococcal vaccine 65+ (1 of 1 - PCV) 1995 Zoster Vaccine (1 of 2) 1995 Well Visit 65+ 2010 Covid-19 Vaccine ( - season) 2024 11/08/2021, 11/04/2020, 10/12/2020 Influenza Vaccine (#1) 2024 05/14/2019, 2014 DTaP/Tdap/Td Vaccine (2 - Td or Tdap) 08/09/2030 Hepatitis B Screening Completed 06/06/2019 Insurance MEDICARE [facility] [place] [address] Care Teams Executive Vp Relationship Specialty Start Date End Date Ivanna Arciniega MD [facility] [address] PCP - General 06/26/14
--- OUTSIDE RECORDS SUMMARY | 2024-11-07 10:07 | XMS_ITS | Clinical Summary ---
Author Organization [facility] [employer] Address [address] [place] [address] Care Team Providers Care Bottler Helper Name Role Phone Ivanna Arciniega MD Primary Care Provider [phone] Source Comments [facility] [employer],non-owned Affiliates and Associated Physician Practices is amultiple site organization consisting of ambulatory clinics and hospital sitesin [place], [place], [place] and [place]. This disclosure is being madepursuant to the Care Everywhere program and may not contain all information available regarding this patient. Last updated 18.[facility] [employer] Allergies No known active allergies Medications * Be aware that medications may not be up to date on this document. Alwaysverify current medications with the patient. Medication Sig Dispensed Refills Start Date End Date Status lisinopril (PRINIVIL; ZESTRIL) 40 MG tablet Take 40 mg by mouth 2 times daily Active ferrous sulfate 325 (65 FE) MG tablet Take 325 mg by mouth once daily Active levothyroxine (SYNTHROID) 25 MCG tablet Take 25 mcg by mouth daily before breakfast Active celecoxib (CELEBREX) 200 MG capsule Take 200 mg by mouth once daily Active DULoxetine (CYMBALTA) 30 MG capsule Take 30 mg by mouth once daily Active clonazePAM (KLONOPIN) 1 MG tablet Take 1 mg by mouth 3 times daily as needed for Anxiety Active DULoxetine (CYMBALTA) 60 MG capsule Take 60 mg by mouth once daily Active Social History Tobacco Use Types Packs/Day Years Used Date Smoking Tobacco: Never Alcohol Use Standard Drinks/Week Comments Yes 0 (1 standard drink = 0.6 oz pur e alcohol) social Sex and Gender Information Value Date Recorded Sex Assigned at Not on file Gender Identity Not on file Sexual Orientation Not on file Last Filed Vital Signs Vital Sign Reading Time Taken Comments Blood Pressure 135/79 05/17/2015 11:12 AM CDT Pulse 61 05/17/2015 11:12 AM CDT Temperature 36.4 C (97.5 F) 05/17/2015 7:45 AM CDT Respiratory Rate 20 05/17/2015 11:12 AM CDT Oxygen Saturation 95% 05/17/2015 11:12 AM CDT Inhaled Oxygen Concentration - - Weight - - Height - - Body Mass Index - - Plan of Treatment Health Maintenance Due Date Last Done Comments BONE DENSITY TESTING 1945 MEDICARE AWV 12 MONTHS 1945 DTAP/TDAP/TD VACCINES (1 - Tdap) 02/01/1964 PNEUMOCOCCAL VACCINE 50+ (1 of 1 - PCV) 1995 ZOSTER VACCINE (1 of 2) 1995 Respiratory Syncytial Virus (RSV) Vaccine Pt: or over 60 yrs (1 - 1-dose 75+ series) 02/01/2020 COVID-19 VACCINE ( - 2023-2 5 season) 2024 INFLUENZA VACCINE (#1) 2024 06/27/2015 DEPRESSION SCREENING 08/17/2024 HEPATITIS B VACCINE Aged Out No longe r eligible based on patient's age to complete this topic HIB VACCINE Aged Out No longer eligi ble based on patient's age to complete this topic HPV VACCINE Aged Out No longer eligi ble based on patient's age to complete this topic MENINGOCOCCAL (Group B) VACC INE SHARED DECISION-MAKING Aged Out No longer eligibl e based on patient's age to complete this topic MENINGOCOCCAL GROUPS A/C/Y/W VACCINE Aged Out No longer eligible b ased on patient's age to complete this topic Care Teams Bottler Helper Relationship Specialty Start Date End Date Ivanna Arciniega MD [address] [place] [address] [address] [place] [address] PCP - General Family Medicine 05/17/15
--- OUTSIDE RECORDS SUMMARY | 2024-11-07 10:07 | XMS_ITS | CONTINUITY OF CARE DOCUMENT ---
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 Name Role Phone William SPRING, Noé Unavailable ADEOLA SPRING, HERNANDEZ Unavailable [phone] ABDI GENTILE Unavailable [phone] PROBLEMS Condition Status Date Provider Notes Abnormal blood chemistry active Francesco Andrew RN Hypothyroidism active Noé Thomas MD Anxiety disorder active Noé Thomas MD Sleep apnea had a sleep stud y , unable to tolerate cpap active Noé Thomas MD Hypertension completed - Noé Thomas MD Dizziness active Noé Thomas MD Syncope vasodepressor ,abnl titl on 05/31 at [facility] active Noé Thomas MD Hypertriglyceridemia active Obed flowers Other abnormal glucose completed 4 - Ulises Becerra Pre-diabetes active Noé Thomas MD Chest discomfort--normal str ess nuclear, 10/2021 active Ulises Becerra Shortness of breath active Noé Thomas MD Long-term (current) use of o ther medications completed - Noé Thomas MD HTN essential--echo ef 65%, 10/2021 active Ulises Becerra ENCOUNTERS Date Type Provider Location Encounter Diag nosis - In-person encounter Office Visit Noé Thomas MD [facility] Shortness of breath - In-person encounter Office Visit Noé Thomas MD [facility] - In-person encounter Office Visit Noé Thomas MD [facility] Long-term (current) use of other medications - In-person encounter Office Visit Noé Thomas MD [facility] HTN essential--echo ef 65%, ther abnormal glucoseChest discomfort--normal stress nuclear, 10/2021 - In-person encounter Office Visit Noé Thomas MD [facility] Chest discomfort--normal stress nuclear, 10/2021 - In-person encounter Office Visit Noé Thomas MD [facility] - In-person encounter Office Visit Noé Thomas MD [facility] HTN essential--echo ef 65%, re-diabetes - In-person encounter Office Visit No[facility] - In-person encounter Office Visit Noé Thomas MD [facility] Hypertriglyceridemia - In-person encounter Office Visit Noé Thomas MD [facility] - In-person encounter Office Visit Noé Thomas MD [facility] - In-person encounter Office Visit Noé Thomas MD [facility] Hypertension - In-person encounter Office Visit Noé Thomas MD [facility] - In-person encounter Office Visit Noé Thomas MD [facility] - In-person encounter Office Visit Noé Thomas MD [facility] - In-person encounter Office Visit Noé [facility] - In-person encounter Office Visit Noé Thomas MD [facility] - In-person encounter Office Visit Noé [facility] - In-person encounter Office Visit Noé Thomas MD [facility] Syncope vasodepressor ,abnl titl on 05/31 at [facility] - In-person encounter Office Visit Noé Thomas MD [facility] HTN essential--echo ef 65%, izziness - In-person encounter Office Visit Noé Thomas MD [facility] HTN essential--echo ef 65%, leep apnea had a sleep study , unable to tolerate cpap - In-person encounter Office Visit oNé Thomas MD [facility] HTN essential--echo ef 65%, 10/2021HypothyroidismAnxiet y disorder VITAL SIGNS Date Observation Value Provider Body Mass Index (Ratio) 36.61 kg/m2 Modesto Thomas MD blood pressure, cuff size regular Ke cora Grey blood pressure, diastolic 80 mm[Hg] Ramírez Grey blood pressure, systolic 142 mm[Hg] Fidel Grey oxygen saturation, oximetry 96 % Christina Grey respiratory rate E&M 12 /min Christina bynum pulse rate 89 /min Christina Langley lder weight E&M 220 [lb_av] Christina Langley lder height E&M 65 [in_i] Christina Langley er Body Mass Index (Ratio) 35.41 kg/m2 Modesto Thomas MD blood pressure, diastolic 95 mm[Hg] St naman Sarmiento blood pressure, systolic 189 mm[Hg] Rose Sarmiento oxygen saturation, oximetry 99 % Quynh Sarmiento pulse rate 69 /min Quynh Sarmiento weight E&M 212.8 [lb_av] Quynh Sarmiento respiratory rate E&M 16 /min Quynh alegre height E&M 65 [in_i] Quynh Torsten Body Mass Index (Ratio) 34.44 kg/m2 Modesto Thomas MD blood pressure, diastolic 70 mm[Hg] Ri mariana Becerra blood pressure, systolic 130 mm[Hg] Marianne Valdezmedzadanelle oxygen saturation, oximetry 98 % Ulises Becerra pulse rate 80 /min Ulises Becerra weight E&M 207 [lb_av] Ulises Becerra Body Mass Index (Ratio) 34.94 kg/m2 Modesto Thomas MD blood pressure, cuff size regular Ca therine [place] blood pressure, diastolic 65 mm[Hg] Ri mariana Valdezmedzadanelle blood pressure, systolic 135 mm[Hg] Marianne rosangela Valdezmedzadanelle oxygen saturation, oximetry 97 % Ulises Bookerzadanelle pulse rate 60 /min Ulises Bookerzadanelle weight E&M 210 [lb_av] Ulises Valdezmedzadanelle Body Mass Index (Ratio) 35.11 kg/m2 Modesto Thomas MD blood pressure, diastolic 72 mm[Hg] Ca therine Greyson blood pressure, systolic 136 mm[Hg] Cat herine [place] oxygen saturation, oximetry 98 % Estelle Greyson respiratory rate E&M 14 /min Catheri ne [place] pulse rate 62 /min Estelle Greyson weight E&M 211 [lb_av] Estelle Greyson blood pressure, cuff size regular Ca therine Greyson height E&M 65 [in_i] Estelle Greyson Body Mass Index (Ratio) 36.11 kg/m2 Modesto Thomas MD blood pressure, cuff size large Renay matos [place] blood pressure, diastolic 80 mm[Hg] Mi shawna [place] blood pressure, systolic 130 mm[Hg] Erick godfrey [place] oxygen saturation, oximetry 97 % Priscilla Mendez respiratory rate E&M 16 /min Vidya Mendez pulse rate 91 /min Priscilla blackwood weight E&M 217 [lb_av] Priscilla blackwood height E&M 65 [in_i] Priscilla blackwood Body Mass Index (Ratio) 37.07 kg/m2 Modesto Thomas MD blood pressure, diastolic 60 mm[Hg] Ricky rosetteCarolinegutierrez Garcia blood pressure, systolic 108 mm[Hg] Yuliana Garcia oxygen saturation, oximetry 95 % Usman Garcia respiratory rate E&M 16 /min Stacey Garcia pulse rate 66 /min Usman chacon weight E&M 222.8 [lb_av] Usman goyalon height E&M 65 [in_i] UsmanSheri chacon Body Mass Index (Ratio) 37.11 kg/m2 Trac y Lively blood pressure, diastolic 70 mm[Hg] Li nkLogic blood pressure, systolic 134 mm[Hg] Abena kLogic blood pressure, cuff size regular Cy freddie Galicia blood pressure, diastolic 70 mm[Hg] Cy nthia Grayson blood pressure, systolic 134 mm[Hg] Stacy thia Grayson oxygen saturation, oximetry 97 % Honey Galicia pulse rate 56 /min Honey castellanos respiratory rate E&M 16 /min Honey Galicia weight E&M 223 [lb_av] Honey castellanos height E&M 65 [in_i] Honey castellanos Body Mass Index (Ratio) 36.61 kg/m2 Modesto Thomas MD blood pressure, diastolic 72 mm[Hg] To nsha Vides blood pressure, systolic 137 mm[Hg] Ton [facility] oxygen saturation, oximetry 97 % [facility] respiratory rate E&M 16 /min Tonsha Vides pulse rate 46 /min Tonsha Vides weight E&M 220 [lb_av] Tonsha Vides height E&M 65 [in_i] Tonsha Vides Body Mass Index (Ratio) 37.11 kg/m2 Modesto Thomas MD blood pressure, diastolic 81 mm[Hg] To nsha Vides blood pressure, systolic 146 mm[Hg] Ton [facility] blood pressure, resting Yes Tons roth Vides respiratory rate E&M 16 /min Tons Vides oxygen saturation, oximetry 97 % Tons Vides pulse rate 77 /min Tonsha Vides weight E&M 223 [lb_av] Tonsha Vides height E&M 65 [in_i] Tonsha Vides Body Mass Index (Ratio) 36.94 kg/m2 Modesto Thomas MD blood pressure, diastolic 70 mm[Hg] Ki neil Dorseyam blood pressure, systolic 110 mm[Hg] Remy Dorseyam oxygen saturation, oximetry 97 % Mokane Gonzales respiratory rate E&M 16 /min Mokane Gonzales pulse rate 80 /min Mokane Gonzales weight E&M 222 [lb_av] Mokane Gonzales height E&M 65 [in_i] Saad Gonzales Body Mass Index (Ratio) 37.44 kg/m2 Modesto Thomas MD blood pressure, cuff size large Ke rri Gruenenfelder blood pressure, diastolic 110 mm[Hg] Ke rri Gruenenfelder blood pressure, systolic 190 mm[Hg] Ker ri Gruenenfelder oxygen saturation, oximetry 98 % Christina Gruenenfelder respiratory rate E&M 18 /min Christina G ruenenfelder pulse rate 57 /min Christina Gruenededee lder weight E&M 225 [lb_av] Christina Gruenenfe lder height E&M 65 [in_i] Christina Gruenenfe lder Body Mass Index (Ratio) 39.27 kg/m2 Modesto Thomas MD blood pressure, cuff size regular Ke rri Gruenenfelder blood pressure, diastolic 98 mm[Hg] Ke rri Gruenenfelder blood pressure, systolic 171 mm[Hg] Ker ri Gruenenfelder oxygen saturation, oximetry 96 % Christina Gruenenfelder respiratory rate E&M 20 /min Christina G jacquelineenenfelder pulse rate 111 /min Christina Gruenenfe lder weight E&M 236 [lb_av] Christina Gruenenfe lder height E&M 65 [in_i] Christina Gruenenfe lder blood pressure, diastolic 86 mm[Hg] Ricky Garcia blood pressure, systolic 144 mm[Hg] Yuliana Garcia pulse rate 97 /min Usman chacon respiratory rate E&M 18 /min Stacey Garcia Body Mass Index (Ratio) 37.11 kg/m2 Tammi Garcia weight E&M 223 [lb_av] Usman chacon blood pressure, diastolic 90 mm[Hg] Me margie Espinoza blood pressure, systolic 145 mm[Hg] Mercy joy Espinoza pulse rate 86 /min Caitie Espinoza oxygen saturation, oximetry 97 % Caitie Espinoza respiratory rate E&M 15 /min Caitie Espinoza Body Mass Index (Ratio) 36.27 kg/m2 Enriqueta white Espinoza weight E&M 218 [lb_av] Caitie Espinoza pulse rate 87 /min Shirley Guillen oxygen saturation, oximetry 96 % Shirley Guillen respiratory rate E&M 18 /min Shirley Guillen blood pressure, diastolic, standing 95 mm [Hg] Shirley Guillen blood pressure, systolic, standing 152 mm [Hg] Shirley Guillen blood pressure, diastolic 94 mm[Hg] [facility] blood pressure, systolic 146 mm[Hg] Lowery patrick Guillen Body Mass Index (Ratio) 36.27 kg/m2 Barbara ca Guillen weight E&M 218 [lb_av] Shirley Guillen blood pressure, diastolic 90 mm[Hg] Ricky Nealenson blood pressure, systolic 149 mm[Hg] Yuliana Garcia pulse rate 97 /min Usman Yeung ines oxygen saturation, oximetry 92 % Usman Nealenson respiratory rate E&M 16 /min Stacey Garcia Body Mass Index (Ratio) 36.71 kg/m2 Tammi Wade Garcia weight E&M 220.6 [lb_av] Usman goyalnu blood pressure, diastolic 99 mm[Hg] Me hanson Adama blood pressure, systolic 194 mm[Hg] Mercy joy Adama respiratory rate E&M 16 /min Caitie Galan pulse rate 60 /min Caitie Galan oxygen saturation, oximetry 96 % Caitie Galan Body Mass Index (Ratio) 37.27 kg/m2 Enriqueta cindy Galan weight E&M 224 [lb_av] Caitie Galan blood pressure, diastolic 94 mm[Hg] Md margie Espinoza blood pressure, systolic 156 mm[Hg] Mercy joy Espinoza pulse rate 90 /min Caitie Espinoza oxygen saturation, oximetry 96 % Caitie Espinoza respiratory rate E&M 15 /min Caitie Espinoza Body Mass Index (Ratio) 38.60 kg/m2 [facility] weight E&M 232 [lb_av] Caitie Espinoza blood pressure, diastolic 84 mm[Hg] Md margie Espinoza blood pressure, systolic 147 mm[Hg] Mercy joy Espinoza Body Mass Index (Ratio) 37.77 kg/m2 [facility] pulse rate 86 /min Caitie Espinoza oxygen saturation, oximetry 96 % Caitie Espinoza respiratory rate E&M 14 /min Caitie Espinoza weight E&M 227 [lb_av] Caitie Espinoza Body Mass Index (Ratio) 37.27 kg/m2 [facility] blood pressure, diastolic 85 mm[Hg] Md margie Espinoza blood pressure, systolic 131 mm[Hg] Mercy joy Espinoza pulse rate 76 /min Caitie Espinoza oxygen saturation, oximetry 98 % Caitie Espinoza respiratory rate E&M 16 /min Caitie Espinoza weight E&M 224 [lb_av] Caitie Espinoza height E&M 65 [in_i] Caitie Espinoza ALLERGIES No Known Drug Allergies RESULTS Date Observation Value Provider Reference Range Interpretation Location 1 hemoglobin A1C, blood, as % of total hemoglobin 6.3 % OF TOTAL HGB [facility] <5.7 High 1 thyroid stimulating hormone, serum 4.65 u[IU]/mL [facility] 0.40-4.50 High 1 thyroxine, serum, free 1.2 ng/dL [facility] 0.8-1.8 Normal 1 triiodothyronine (T3), serum 124 ng/dL [facility] 76-181 Normal 1 ferritin, serum 32 ng/mL [facility] 16-288 Normal 1 basophils as percent of blood leukocytes 0.9 % [facility] Normal 1 eosinophils as percent of blood leukocytes 2.4 % [facility] Normal 1 monocyte count, blood 9.6 % [facility] Normal 1 lymphocyte count, blood 24.3 % [facility] Normal 1 neutrophils as percent of blood leukocytes 62.8 % [facility] Normal 1 basophils, absolute, manual 63 cells/mcL [facility] 0-200 Normal 1 eosinophils, absolute, manual 168 cells/mcL [facility] 15-500 Normal 1 monocytes, absolute, manual 672 cells/mcL [facility] 200-950 Normal 1 lymphocytes, absolute 1701 CELLS/UL [facility] 850-3900 Normal 1 Absolute Neutrophil count 4396 cells/mcL [facility] 0120-7445 Normal 1 mean platelet volume 11.5 fL [facility] 7.5-12.5 Normal 1 platelet count 235 THOUSAND/ UL [facility] 140-400 Normal 1 red blood cell distribution width 12.8 % [facility] 11.0-15.0 Normal 1 mean corpuscular hemoglobin concentration, RBC 33.2 G/DL [facility] 32.0-36.0 Normal 1 mean corpuscular hemoglobin, RBC 31.0 pg [facility] 27.0-33.0 Normal 1 mean corpuscular volume, RBC 93.6 fL [facility] 80.0-100.0 Normal 1 hematocrit, blood 42.2 % [facility] 35.0-45.0 Normal 1 hemoglobin electrophoresis, blood 14.0 [facility] 11.7-15.5 Normal 1 erythrocyte (RBC) count 4.51 MILLION/U L [facility] 3.80-5.10 Normal 1 leukocyte (white blood cells) count, blood 7.0 THOUSAND/ UL [facility] 3.8-10.8 Normal 1 alanine aminotransferase (SGPT), serum 12 1/L [facility] 6-29 Normal 1 aspartate aminotransferase (SGOT), serum 16 1/L [facility] 10-35 Normal 1 alkaline phosphatase, serum 76 1/L [facility] 37-153 Normal 1 bilirubin, serum, total 1.2 mg/dL [facility] 0.2-1.2 Normal 1 albumin/globulin ratio, serum 1.6 (calc) [facility] 1.0-2.5 Normal 1 globulins, serum, total 2.6 G/DL (CALC) [facility] 1.9-3.7 Normal 1 albumin, serum 4.1 g/dL [facility] 3.6-5.1 Normal 1 protein, total, serum 6.7 g/dL [facility] 6.1-8.1 Normal 1 calcium, serum 9.6 mg/dL [facility] 8.6-10.4 Normal 1 carbon dioxide, venous blood 28 mmol/L [facility] 20-32 Normal 1 chloride, serum 104 mmol/L [facility] 98-110 Normal 1 potassium, serum 4.0 mmol/L [facility] 3.5-5.3 Normal 1 sodium, serum 138 mmol/L [facility] 135-146 Normal 1 urea nitrogen/creatinine ratio, serum SEE NOTE: (calc) [facility] 6-22 1 creatinine, serum 0.95 mg/dL [facility] 0.60-1.00 Normal 1 urea nitrogen, blood 24 mg/dL [facility] 7-25 Normal 1 blood glucose, random 104 mg/dL [facility] 65-139 Normal 1 NT-pro BNP 101 [facility] <450 Normal 1 iron saturation percent, serum 23 % (CALC) [facility] 16-45 Normal 1 iron binding capacity, total 366 MCG/DL (CALC) [facility] 250-450 Normal 1 iron, serum 83 ug/dL [facility] 45-160 Normal 1 cholesterol, non-HDL, total 139 MG/DL (CALC) [facility] <130 High 1 cholesterol/HDL ratio, serum, percent 4.6 (calc) [facility] <5.0 Normal 1 LDL cholesterol, serum 101 MG/DL (CALC) [facility] High 1 triglyceride, serum, fasting 267 mg/dL [facility] <150 High 1 HDL cholesterol, serum 39 mg/dL [facility] > OR = 50 Low 1 cholesterol, serum 178 mg/dL [facility] <200 Normal 5 free thyroxine index 6.9 ??g/dL [facility] 4.4 - 11.4 5 triiodothyronine uptake 1.1 TBI [facility] 0.8 - 1.3 5 thyroxine, serum, total 7.6 ??G/DL [facility] 4.5 - 11.7 5 red blood cell distribution width, size density 48.0 fL [facility] - 5 immature granulocytes, percentage of total cells, blood 0.5 % [facility] - 5 nucleated red blood cells as percent of blood leukocytes 0.0 % [facility] - 5 red blood cell (erythrocyte) count, per high power field 0.0 10*3/UL [facility] - 5 eosinophils as percent of blood leukocytes 0.5 % [facility] - 5 neutrophils as percent of blood leukocytes 60.4 % [facility] - 5 Absolute Neutrophils 7.8 CELLS/UL [facility] 1.5 - 7.8 5 basophils as percent of blood leukocytes 0.4 % [facility] - 5 Absolute Basophils 0.1 CELLS/UL [facility] 0.0 - 0.2 5 monocytes as percent of blood leukocytes 7.8 % [facility] - 5 Absolute Monocytes 1.0 CELLS/UL [facility] 0.2 - 1.0 High 5 lymphocytes as percent of blood leukocytes 30.4 % [facility] - 5 Absolute Lymphocytes 3.9 CELLS/UL [facility] 0.9 - 3.9 5 mean platelet volume 11.1 (?) [facility] - 5 platelet count 271.0 THOUSAND/ UL [facility] 100.0 - 400.0 5 mean corpuscular hemoglobin concentration, RBC 31.0 G/DL [facility] 31.0 - 38.0 5 mean corpuscular hemoglobin, RBC 29.1 pg [facility] 25.0 - 35.0 5 mean corpuscular volume, RBC 93.9 fL [facility] 75.0 - 100.0 5 hematocrit, blood 44.8 % [facility] 35.0 - 55.0 5 hemoglobin, blood 13.9 g/dL [facility] 11.5 - 16.5 5 erythrocyte count, whole blood 4.8 MILLION/U L [facility] 3.5 - 5.5 5 hemoglobin A1C, blood, as % of total hemoglobin 6.3 % [facility] 4.0 - 6.0 High 5 thyroid stimulating hormone, serum 1.880 ?IU/ML [facility] 0.270 - 4.200 5 magnesium, serum 2.4 mg/dL [facility] 1.6 - 2.4 5 anion gap, serum 13.1 [facility] - 5 albumin/globulin ratio, serum 2.5 g/dL [facility] 1.1 - 2.5 5 globulin, serum 3.1 [facility] 2.3 - 3.8 5 urea nitrogen/creatinine ratio, serum 25.6 [facility] - 5 Estimated Glomerular Filtration Rate (calc) 65.8 (?) [facility] 59.0 - 5 chloride, serum 99.9 mmol/L [facility] 98.0 - 107.0 5 potassium, serum 4.1 mmol/L [facility] 3.5 - 5.1 5 sodium, serum 145.0 mmol/L [facility] 136.0 - 145.0 5 creatine, serum 0.9 mg/dL [facility] 0.5 - 0.9 5 carbon dioxide, venous blood 32.0 mmol/L [facility] 23.0 - 31.0 High 5 albumin, serum 4.3 g/dL [facility] 3.5 - 5.2 5 calcium, serum 9.9 mg/dL [facility] 8.6 - 10.2 5 aspartate aminotransferase (SGOT), serum 14.0 1/L [facility] 0.0 - 32.0 5 alkaline phosphatase, serum 88.0 1/L [facility] 40.0 - 130.0 5 alanine aminotransferase (SGPT), serum 15.0 1/L [facility] 0.0 - 33.0 5 protein, total, serum 7.4 g/dL [facility] 6.6 - 8.7 5 urea nitrogen, blood 23.0 mg/dL [facility] 8.0 - 23.0 5 Glucose Urine 102.0 mg/dL [facility] 74.0 - 99.0 High 5 bilirubin, serum, total 0.8 mg/dL [facility] 0.0 - 1.2 HISTORY OF MEDICATION USE Medication Status Instructions Dates Provider Indications Com ments levothyroxine 25 mcg tablet active Take 1 tablet by mouth once a day Noé Thomas MD carvedilol 12.5 mg tablet active TAKE 1 TABLET BY MOUTH TWICE A DAY 202303/09 carvedilol 12.5 mg tablet completed Take 1 tablet by mouth twice a day TAKE 1 TABLET BY MOUTH TWICE A DAY 02/10 - 03/09 atorvastatin 10 mg tablet completed Take 1 tablet by mouth every evening 11/25 - 01/24 Noé Thomas MD Jardiance 10 mg tablet completed Take 1 tablet by mouth once a day 11/25 - 01/24 Noé Thomas MD gabapentin 300 mg capsule active TAKE 1 CAPSULE BY MOUTH THREE TIMES A DAY Ulises Becerra metformin 500 mg tablet extended release 24 hr completed Take 1 tablet by mouth once a day - 10/08 Noé Thomas MD hydrochlorothiazide 12.5 mg capsule active TAKE 1 CAPSULE BY MOUTH EVERY DAY Noé Thomas MD Vascepa 1 gram capsule completed 2 capsule by mouth twice a day 04/10 - Noé Thomas MD METHOCARBAMOL 500 MG TABS completed Take 1 tablet four times a day 03/29 - 01/24 Noé Thomas MD hydrochlorothiazide 12.5 mg tablet completed Take 1 tablet once a day 03/29 - Noé Thomas MD topiramate 25 mg tablet completed Take 1 tablet once a day 03/29 - Noé Thomas MD diclofenac sodium 50 mg tablet,delayed release (DR/EC) completed Take 1 tablet twice a day 03/29 - 10/08 Ulises Becerra amlodipine 10 mg tablet completed 1 tablet every night 09/14 - 01/24 Noé Thomas MD carvedilol 6.25 mg tablet completed Take 1 tablet by mouth twice a day 09/07 - 02/10 Priscilla Mendez ALPRAZOLAM 0.5 MG ORAL TABLET completed one pill three times a day as needed 09/07 - 03/26 Christina Grey CYCLOBENZAPRINE HCL 10 MG ORAL TABLET completed take one pill 3 times a day 09/07 - 03/29 Noé Thomas MD MELOXICAM 15 MG ORAL TABLET completed take one pill a day 09/07 - 03/29 Noé Thomas MD MIDODRINE HCL 5 MG ORAL TABLET completed twice daily - 03/26 Christina Grey HYDRALAZINE HCL 50 MG ORAL TABLET completed po bid 09/07 - 09/07 Noé Thomas MD lisinopril 40 mg tablet active Take 1 tablet by mouth once a day 02/14 Christina Grey CELEBREX 200 MG ORAL CAPSULE completed once daily - 03/26 Shirley Guillen ATENOLOL 50 MG ORAL TABLET completed one tab at night - 03/26 Caitie Galan PREDNISONE (JOSE) TABS completed once daily 04/30 - Caitie Espinoza CLONAZEPAM 1 MG ORAL TABLET completed three times daily 09/17 - 03/26 Christina Grey LISINOPRIL 40 MG ORAL TABLET completed twice daily 09/17 - Noé Thomas MD CYMBALTA 30 MG ORAL CAPSULE DELAYED RELEASE PARTICLES completed once daily 09/17 - 03/26 Christina Grey CELEBREX 200 MG ORAL CAPSULE completed once daily 09/17 - Noé Thomas MD LEVOTHYROXINE SODIUM 25 MCG ORAL TABLET completed once daily 09/17 - 03/26 Christina Grey HYDROCHLOROTHIAZIDE 25 MG ORAL TABLET completed ONE TAB DAILY 09/17 - Caitie Espinoza DULOXETINE HCL 60 MG ORAL CAPSULE DELAYED RELEASE PARTICLES completed 60MG IN THE AM AND 30MG AT BEDTIME - 03/26 Christina Grey FERROUS SULFATE 325 (65 Fe) MG ORAL TABLET completed ONE PER DAY 09/17 - 04/30 Caitie Espinoza SOCIAL HISTORY Date Observation Value Provider smoking status Never smoker Ivan Sullivan smoking status Never smoker Quynh Sarmiento social history reviewed E&M revi ewed - no changes required Ulises Ahmedzai smoking status Never smoker Estelle Edilia s social history reviewed E&M revi ewed - no changes required Ulises Ahmedzai smoking status Never smoker Estelle Edilia s social history reviewed E&M revi ewed - no changes required Ulises Valdezmedzai smoking status Never smoker Priscilla Whit and social history reviewed E&M revi ewed - no changes required Ulises Valdezmedzai smoking status Never smoker Usman Garnica laurarafael social history reviewed E&M revi ewed - no changes required Ulises Bookerzai social history E&M S moking History: Mateusz stallworth has never smoked. Noé Thomas MD social history reviewed E&M revi ewed - no changes required Noé Thomas MD smoking status Never smoker Honey santos smoking status Never smoker Obed espinoza social history E&M S moking History: Mateusz stallworth has never smoked. Obed Colón social history reviewed E&M revi ewed - no changes required Obed Colón smoking status Never smoker Durga Sullivan social history E&M S moking History: Mateusz stallworth has never smoked. Durga Sullivan social history reviewed E&M revi ewed - no changes required Durga Sullivan social history reviewed E&M revi ewed - no changes required Noé Thomas MD social history E&M S moking History: Mateusz stallworth has never smoked. Noé Thomas MD smoking status Never smoker Saad Jagjit nunez social history E&M S moking History: Mateusz stallworth has never smoked. Noé Thomas MD social history reviewed E&M revi ewed - no changes required Noé Thomas MD smoking status Never smoker Christina hernandez social history reviewed E&M revi ewed - no changes required Noé Thomas MD number of grandchildren Noé Thomas MD T robert Thomas MD smoking status Never smoker Christina hernandez social history reviewed E&M revi ewed - no changes required Noé Thomas MD smoking status Never smoker Usman Masterson social history reviewed E&M revi ewed - no changes required Noé Thomas MD smoking status Never smoker Caitie Liurishabh whitley social history reviewed E&M revi ewed - no changes required Noé Thomas MD social history reviewed E&M revi ewed - no changes required Noé Thomas MD smoking status Never smoker Usman Masterson social history reviewed E&M revi ewed - no changes required Noé Thomas MD smoking status Never smoker Caitie Galan social history reviewed E&M revi ewed - no changes required Noé Thomas MD smoking status Never smoker Caitie Liurishabh whitley social history reviewed E&M revi ewed - no changes required Noé Thomas MD smoking status Never smoker Caitie Liurishabh whitley social history reviewed E&M revi ewed - no changes required Noé Thomas MD smoking status Never smoker Caitie Flores gutierrez FAMILY HISTORY Family Member Condition Mother Family History Unkno wn Paternal Grandmother Family History of C oronary Artery Disease: Paternal Grandfather Family History of C oronary Artery Disease: Maternal Grandmother Family History of C oronary Artery Disease: Maternal Grandfather Family History of C oronary Artery Disease: Father Family History of Co ronary Artery Disease: INSURANCE PROVIDERS Payer name Policy type / Coverage type Morton red libertarian ID [employer] MEDICARE [facility] ADVANTAGE O Medicare [id number] ADVANCE DIRECTIVES Name Date DISCUSSED - NO DECISION MADE TREATMENT PLAN Date Name Performer [id number] Riaz Ahmedza i [id number],B, Ulises Ahmedza i [id number],S, Ulises Ahmedza i [id number],S, Ulises Ahmedza i [id number],S, Ulises Ahmedza i [id number],S, Ulises Ahmedza i [id number],S, Ulises Ahmedza i [id number],S, Ulises Ahmedza i [id number],S, Ulises Ahmedza i [id number],S, Ulises Ahmedza i [id number],S, Ulises Ahmedza i [id number],S, Ulises Ahmedza i [id number],S, Ulises Ahmedza i [id number],S, Ulises Ahmedza i [id number],S, Ulises Ahmedza i [id number],S, Ulises Ahmedza i [id number],B, Ulises Ahmedza i [id number],S, Ulises Ahmedza i [id number],S, Ulises Ahmedza i [id number],S, Ulises Ahmedza i [id number],B, Ulises Ahmedza i [id number],N, Noé Thomas MD [id number],B, Noé Thomas MD [id number],S, Noé Thomas MD [id number],B, Noé Thomas MD [id number],B, Noé Thomas MD [id number],W, Noé Thomas MD [id number],S, Noé Thomas MD [id number],S, Noé Thomas MD [id number],W, Noé Thomas MD [id number],S, Noé Thomas MD Cardiology: H er updated medication list for this problem includes: Levothyroxine 25 Mcg Tablet (Levothyroxine) ..... Take 1 tablet by mouth once a day Noé Thomas MD Cardiology Noé Thomas MD Cardiology: T he following medications were removed from the medication list: Atorvastatin 10 Mg Tablet (Atorvastatin) ..... Take 1 tablet by mouth every evening Noé Thomas MD Cardiology: T he following medications were removed from the medication list: Amlodipine 10 Mg Tablet (Amlodipine) ..... 1 tablet every night Her updated medication list for this problem includes: Carvedilol 12.5 Mg Tablet (Carvedilol) ..... Take 1 tablet by mouth twice a day Lisinopril 40 Mg Tablet (Lisinopril) ..... Take 1 tablet by mouth once a day Hydrochlorothiazide 12.5 Mg Capsule (Hydrochlorothiazide) ..... Take 1 capsule by mouth every day Noé Thomas MD Cardiology Noé Thomas MD Cardiology Ulises Ahmedzai Cardiology Ulises Ahmedzai Cardiology Ulises Ahmedzai Cardiology Ulises Ahmedzai Cardiology Ulises Ahmedzai Cardiology Ulises Ahmedzai Cardiology Ulises Ahmedzai Cardiology Ulises Ahmedzai Cardiology Ulises Ahmedzai Cardiology Ulises Ahmedzai Cardiology Ulises Ahmedzai Cardiology Ulises Ahmedzai Cardiology Ulises Ahmedzai Cardiology Ulises Ahmedzai Cardiology Ulises Ahmedzai Cardiology Ulises Ahmedzai Cardiology Ulises Ahmedzai Cardiology Ulises Ahmedzai Cardiology Ulises Ahmedzai Cardiology Ulises Ahmedzai Cardiology Ulises Ahmedzai Cardiology Noé Thomas MD Cardiology Noé Thomas MD Cardiology Noé Thomas MD Cardiology Noé Thomas MD Cardiology Noé Thomas MD Cardiology Noé Thomas MD Cardiology Noé Thomas MD Cardiology Noé Thomas MD Cardiology Noé Thomas MD Cardiology Noé Thomas MD Cardiology - billing bOed Garc[facility] - billing Obed [facility] - billing :Trigs elevated at 248 on 03/27/2020. Will have her start Vascepa. Her updated medication list for this problem includes: Vascepa 1 Gm Oral Capsule (Icosapent ethyl) ..... 2 capsules by mouth twice daily universal coupon code: bin# [id number], pcn# [email or web address], grp# [email or web address], id# [id number] [facility] - billing : B P today: 137/72 P rior BP: 146/81 (03/27/2020) Her updated medication list for this problem includes: Lisinopril 40 Mg Tablet (Lisinopril) ..... Take 1 tablet by mouth once a day Amlodipine Besylate 10 Mg Oral Tablet (Amlodipine besylate) ..... One tab daily at bedtime Carvedilol 12.5 Mg Oral Tablet (Carvedilol) ..... One tablet twice daily Hydrochlorothiazide 12.5 Mg Oral Tablet (Hydrochlorothiazide) ..... Take 1 tab once daily Obed Eldon Cardiology:Will obtain TSH to ev aluate Durga Sullivan Cardiology:Will obta in current CMP, CBC, hemoglobin A1c, lipid panel B P today: 146/81 P rior BP: 110/70 (03/29/2019) Durga Sullivan [facility]:No reoccurance [facility] Noé Thomas MD Cardiology Noé Thomas MD Cardiology Noé Thomas MD Cardiology Noé Thomas MD Cardiology Follow up Noé ventura MD Cardiology Follow up : B P today: 190/110 P rior BP: 171/98 (09/07/2017) Noé Thomas MD Cardiology Follow up Noé ventura MD Cardiology Follow up Noé ventura MD Cardiology Follow up : B P today: 190/110 P rior BP: 171/98 (09/07/2017) Noé Thomas MD Cardiology Follow up :Per PCP To sean Thomas MD Cardiology Follow up Noé ventura MD Cardiology Follow up :Darek Thomas MD Cardiology Follow up Noé ventura MD Cardiology Noé Thomas MD Cardiology Noé Thomas MD Cardiology Noé Thomas MD Cardiology Noé Thomas MD Cardiology Noé Thomas MD Cardiology Noé Thomas MD Cardiology Noé Thomas MD Cardiology Noé Thomas MD Cardiology Noé Thomas MD Cardiology Noé Thomas MD Cardiology,follow up Noé ventura MD Cardiology,follow up Noé ventura MD Cardiology,follow up Noé ventura MD Cardiology,follow up Noé ventura MD Cardiology,follow up Noé ventura MD Cardiology Noé Thomas MD Cardiology Noé Thomas MD Cardiology Noé Thomas MD Cardiology Noé Thomas MD Cardiology Noé Thomas MD Cardiology Noé Thomas MD Cardiology Noé Thomas MD Cardiology Noé Thomas MD Cardiology Noé Thomas MD Cardiology Noé Thomas MD Cardiology Noé Thomas MD Cardiology Noé Thomas MD Cardiology Noé Thomas MD Cardiology:change lisinopril to atenolol Noé Thomas MD Cardiology Noé Thomas MD Cardiology Noé Thomas MD Cardiology Noé Thomas MD Cardiology Noé Thomas MD Cardiology Noé Thomas MD new patient: H er updated medication list for this problem includes: Lisinopril 40 Mg Tabs (Lisinopril) ..... Twice daily Hydrochlorothiazide 25 Mg Tabs (Hydrochlorothiazide) ..... One tab daily Noé Thomas MD new patient: H er updated medication list for this problem includes: Levothyroxine Sodium 25 Mcg Tabs (Levothyroxine sodium) ..... Once daily Noé Thomas MD new patient: H er updated medication list for this problem includes: Lisinopril 40 Mg Tabs (Lisinopril) ..... Twice daily Hydrochlorothiazide 25 Mg Tabs (Hydrochlorothiazide) ..... One tab daily BP today: 131/85 oNé Thomas MD Date Name Complete Echo TSH, free T4, total T3 PROBNP, N TERMINAL HEMOGLOBIN A1c IRON AND TOTAL IRON BINDING CAPACITY FERRITIN CBC (INCLUDES DIFF/P LT) LIPID PANEL COMPREHENSIVE METABO LIC PANEL, W/EGFR Stress Regadenoson Complete Echo Vitamin D, 25-Hydrox y TSH, free T4, total T3 LIPID PANEL IRON AND TOTAL IRON BINDING CAPACITY FERRITIN HEMOGLOBIN A1c CBC (INCLUDES DIFF/P LT) COMPREHENSIVE METABO LIC PANEL, W/EGFR Holter Monitor 48 hr HEMOGLOBIN A1c IRON AND TOTAL IRON BINDING CAPACITY FERRITIN CBC (INCLUDES DIFF/P LT) TSH, free T4, total T3 LIPID PANEL COMPREHENSIVE METABO LIC PANEL, W/EGFR HEMOGLOBIN A1c TSH, free T4, total T3 LIPID PANEL CBC (H/H, RBC, INDIC ES, WBC, PLT) COMPREHENSIVE METABO LIC PANEL, W/EGFR Complete Echo HEMOGLOBIN A1c TSH, 3RD GENERATION W/REFLEX TO FT4 MAGNESIUM THYROID PANEL WITH T SH, 3RD GENERATION COMPREHENSIVE METABO LIC PANEL W/EGFR CBC (INCLUDES DIFF/P LT) HISTORY OF PROCEDURES Procedure Date Procedure Name Provider Procedure Notes S tatus EKG Noé Thomas MD completed EKG Noé Thomas MD completed Holter, 24 or 48 Noé Thomas MD com pleted EKG Noé Thomas MD completed EKG Noé Thomas MD completed EKG Noé Thomas MD completed EKG Noé Thomas MD completed SNOMED-CT: [id number] Current Medications Documented Noé Thomas MD completed SNOMED-CT: 18817303 Physical Exam, Performed: Pulse Exam of Foot Noé Thomas MD completed SNOMED-CT: 028963508 088011 Current Medications Documented Noé Thomas MD completed SNOMED-CT: 55334621 Physical Exam, Performed: Pulse Exam of Foot Noé Thomas MD completed SNOMED-CT: 53865012 Physical Exam, Performed: Pulse Exam of Foot Noé Thomas MD completed SNOMED-CT: 173412425 486444 Current Medications Documented Noé Thomas MD completed SNOMED-CT: 58260751 Physical Exam, Performed: Pulse Exam of Foot Noé Thomas MD completed SNOMED-CT: 384237108 367741 Current Medications Documented Noé Thomas MD completed SNOMED-CT: 06681493 Physical Exam, Performed: Pulse Exam of Foot Noé Thomas MD completed Holter, 24 or 48 Noé Thomas MD com pleted EKG Noé Thomas MD completed SNOMED-CT: 027649779 183858 Current Medications Documented Noé Thomas MD completed SNOMED-CT: 20154661 Physical Exam, Performed: Pulse Exam of Foot Noé Thomas MD completed SNOMED-CT: 024590835 114279 Current Medications Documented Noé Thomas MD completed Mobile Cardiac Telem etry - Tech Noé Thomas MD completed Mobile Cardiac Telem etry - Prof Noé Thomas MD completed EKG Noé Thomas MD completed EKG Noé Thomas MD completed
--- OUTSIDE RECORDS SUMMARY | 2024-11-07 10:07 | XMS_ITS | Referral Summary ---
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
[2024-11-07 10:38] LABS: Basophils Absolute Auto 0.1 K/mm3 (0.0-0.1); Eosinophils Absolute Auto 0.2 K/mm3 (0-0.3); Eosinophils Percent Auto 3.8 % (0-4.4); Hematocrit 41.6 % (37.0-47.0); Hemoglobin 13.5 g/dL (12.0-15.0); Immature Granulocyte Absolute 0.01 K/mm3 (0.00-0.031); Immature Granulocyte Percent A 0.2 % (0-0.5); Lymphocytes Absolute Auto 1.41 K/mm3 (0.9-3.2); Lymphocytes Percent Auto 24.4 % (18.3-44.2); Mean Corpuscular HGB Conc 32.5 g/dl (32-36); Mean Corpuscular Hemoglobin 30.8 pg (26-34); Mean Corpuscular Volume 94.8 fl (80-100); Mean Platelet Volume 10.9 fl (7.4-10.4); Monocytes Absolute Auto 0.6 K/mm3 (0.1-0.6); Monocytes Percent Auto 9.7 % (2.6-8.5); Neutrophils Absolute Auto 3.5 K/mm3 (1.3-6.7); Neutrophils Percent Auto 60.9 % (45.5-73.1); Platelet Count Result 207 k/mm3 (150-375); Red Blood Count 4.39 M/mm3 (4.2-5.4); White Blood Count 5.8 K/mm3 (4.5-10.0)
[2024-11-07 10:45] LABS: Add Urine Microscopic? YES; Appearance Urine Clear (Clear); Bacteria Urine Rare /hpf; Bilirubin Urine Negative (Negative); Blood Urine Negative (Negative); Color Urine Yellow (Yellow); Glucose Urine UA Negative (Negative); Ketones Urine Negative (Negative); Leukocyte Esterase Ur Trace LEU/UL (Negative); Nitrate Urine Negative (Negative); Non Pathogenic Casts 0-2; Protein Urine Negative (Negative); RBC Urine 0-2 /hpf (0-2); Specific Grav Ur 1.021 (1.001-1.035); Squamous Epithelial Cell Urine Moderate /hpf (Few); pH Urine 6.5 (5.0-9.0)
[2024-11-07 10:50] LABS: Alanine Aminotransferase 18 U/L (6-35); Albumin Level 4.2 g/dL (3.5-5.1); Alkaline Phosphatase 83 U/L (38-126); Anion Gap 5 mmol/L (4-12); Aspartate Amino Transferase 21 U/L (14-36); Bilirubin,Total 1.6 mg/dL (0.2-1.3); Blood Urea Nitrogen 27 mg/dL (7-17); Calcium 9.4 mg/dL (8.4-10.2); Carbon Dioxide 32 mmol/L (22-30); Chloride 103 mmol/L (98-107); Cholesterol 185 mg/dL (0-200); Estimated Glomerular Filt Rate 60; Glucose 116 mg/dL (65-110); HDL Direct 45 mg/dL; Potassium 3.8 mmol/L (3.4-5.0); Sodium 140 mmol/L (137-145); Triglycerides 143 mg/dL (<150)
[2024-11-07 11:01] LABS: LDL Cholesterol Direct 106 mg/dL
== END 2024-11-07 09:13 | disposition home or self-care (01) ==
PROVIDERS: PCP Family Medicine; Visit Provider Nurse Practitioner
DX: E03.9 Hypothyroidism, unspecified (principal); I10 Essential (primary) hypertension; M25.512 Pain in left shoulder; Z01.818 Encounter for other preprocedural examination; Z83.3 Family history of diabetes mellitus
CPT/HCPCS: 36415; 80053; 80061; 81001; 82607; 84443; 85025; 93005